=== PATIENT | female | born 1940 | race Caucasian/White ===

== ENCOUNTER 2017-04-04 07:08 | Outpatient (CLI) | payer MEDICARE ==
[2017-04-04 07:43] LABS: BLOOD UREA NITROGEN 14 MG/DL (7-18); eGFR 48 ML/MIN
== END 2017-04-04 23:59 | disposition home or self-care (01) ==
LOC: 64 CT 07:08
PROVIDERS: ATTEND Surgery
DX: Z01.818 Encounter for other preprocedural examination (principal); K44.9 Diaphragmatic hernia without obstruction or gangrene; N28.89 Other specified disorders of kidney and ureter; R10.32 Left lower quadrant pain; D35.02 Benign neoplasm of left adrenal gland; Z90.710 Acquired absence of both cervix and uterus; Z90.49 Acquired absence of other specified parts of digestive tract
CPT/HCPCS: 36415; 74176; 82565; 84520